=== PATIENT | male | born 1960 | race Caucasian/White ===

== ENCOUNTER 2023-09-16 21:14 | Inpatient (IN) | payer BC, SELFPAY ==
[2023-09-16 16:09] VITALS: BP 157/102
[2023-09-16 16:30] LABS: % Basophils 0.9 % (0-2); % Immature Granulocytes 0.2 % (0-0.5); % Lymphocytes 26.5 % (20.5-51.1); % Monocytes 8.7 % (1.7-9.3); % Neutrophils 62.7 % (42.2-75.2); Absolute Basophils 0.1 10^3/uL (0-0.2); Absolute Eosinophils 0.1 10^3/uL (0-0.7); Absolute Lymphocytes 2.1 10^3/uL (1.2-3.4); Absolute Monocytes 0.7 10^3/uL (0.1-0.6); Absolute Neutrophils 5.1 10^3/uL (1.4-6.5); Hemoglobin 15.6 g/dL (13.0-18.0); Mean Corp Hgb Conc. 35.5 g/dL (33.0-37.0); Mean Corpuscular Hgb 31.3 pg (27.0-31.0); Mean Corpuscular Volume 88.2 fL (80.0-94.0); Mean Platelet Volume 9.3 fL (7.4-10.4); Nucleated Red Blood Cells % 0 % (-); Platelet Count 448 10^3/uL (130-400); Red Blood Cell Count 4.99 10^6/uL (4.70-6.10); Red Cell Dist. Width 11.9 % (11.5-14.5); White Blood Cell Count 8.1 10^3/uL (4.8-10.8)
[2023-09-16 16:44] LABS: ALT (SGPT) 69 U/L (0-50); AST (SGOT) 44 U/L (17-59); Albumin 4.3 g/dl (3.5-5.0); Alkaline Phosphatase 94 U/L (38-126); Blood Urea Nitrogen 17 mg/dl (9-20); Calcium 10.2 mg/dl (8.4-10.2); Carbon Dioxide 21 mmol/L (22-30); Chloride 108 mmol/L (98-107); Glucose 109 mg/dl (70-99); Potassium 4.3 mmol/L (3.5-5.1); Sodium 139 mmol/L (135-145); Total Bilirubin 0.6 mg/dl (0.2-1.3); eGFR > 60.00
[2023-09-16 17:54] VITALS: BP 139/82
[2023-09-16 18:00] VITALS: BP 147/91
--- NOTE | 2023-09-16 18:24 | ED.SKININJ ---
HPI-Injury
General
Chief Complaint: Skin Problem
Source: patient
Exam Limitations: none
Time Seen by Provider: 09/16/23 17:39
Nursing documentation reviewed up to this point in time: agreed with
History of Present Illness-Injury
Initial Injury comments:
63 yo male w no significant past medical history presents with an infection of the lateral aspect of his right ankle. He states he felt discomfort in the area 11 days ago, 9 days ago the ankle felt 'tight' after doing a lot of walking the night
before. He saw his PCP 8 days ago and started on Keflex 1000 mg twice daily and naproxen. 5 days ago the area became more painful and his PCP ordered an MRI which he had yesterday at [facility]. 2 days ago he discontinued the Keflex and
started him on Doxycycline he has had 5 doses.The area continues to get more sore, red and swollen.
Pt denies fever/chills. Feels well otherwise.
His PCP called him today and 'mentioned osteomyelitis' but pt states he doesn't know if he has that.
Past History
Past History
ED Past Medical History: None
ED Past Surgical History: Orthopedic (right foot crush injury age 11, multiple surgeries)
Social History
Tobacco: Smoker
Alcohol: None
Personal:
Living: alone
Review of Systems
Review of Systems
Allergies reviewed?: Yes
All Other Systems: ROS reviewed and negative except as documented in HPI and ROS
Constitutional: Denies fever or chills
ABD/GI: Denies nausea
Musculoskeletal: Reports other (deformed right foot from previous surgery,)
Skin: Reports other ( redness, swelling, pain outer right ankle)
Phy Exam
Physical Exam
Physical Exam:
GENERAL: No acute distress. A&Ox3.
CONSTITUTIONAL: Afebrile.
EYES: clear, conjunctivae normal
ENMT: moist mucus membranes, Pharynx nl
RESPIRATORY: Regular respirations, nonlabored, lungs clear.
CARDIOVASCULAR: Regular rate and rhythm, no murmurs, no rubs.
GI: Soft, nontender, normal BS
MUSCULOSKELETAL: Moves with ease. Well perfused.
SKIN: Warm, dry, pink. Fluctuant area with surrounding erythema, pus filled lateral aspect of right ankle over lateral malleolus. No lymphangitis. Distal n/v intact.
PSYCH: Normal mood and affect. Well kept, interactive and appropriate
NEUROLOGIC: Awake, alert and oriented. No focal neurological deficits
Course
Orders/Labs/Results
Orders:
Orders
09/16/23 16:20
Complete Blood Count/With Diff Urgent
Comprehensive Metabolic Panel Urgent
09/16/23 18:35
Vancomycin 1 Gram/200 ml [Vancocin] 1 gram in 200 ml IV NOW
09/16/23 20:40
Admit/Transfer Patient As Directed
Co-Sign Provider:
Level of Care: Inpatient admission
Assign to:: Medical/Surgical
Physician / Group: Allison
Diagnosis: Right Ankle Cellulitis
Reason for Hospitalization: Right Ankle Cellulitis failing 2 outpatient courses
Expected length of stay greater than two midnights?: Yes
ELOS- Estimated Length of Stay in days: 2
I certify the patient meets the requirements for IP care: Yes
PRN Pain Medication Management As Directed
May give lesser potent ordered pain med per pt: Yes
preference::
Protocol:: Medication orders for pain may be administered in a
manner that supports deferring to patient preference
when the pt is:
- Requesting an ordered lesser potent pain medication.
Least to most potent pain medications are defined
as: acetaminophen < NSAID < tramadol < opioids
(morphine, oxycodone, hydromorphone).
- Requesting a lesser dose of the same medication IF
ORDERED.
- Requesting a less intrusive route of administration
if both routes are prescribed by the provider (PO <
IV).
09/16/23 20:42
Code Status As Directed
Resuscitation Status: Full Code
Abnormal Lab Results
09/16/23
16:20
MCH 31.3 H pg
(27.0-31.0)
Plt Count 448 H 10^3/uL
(130-400)
Absolute Monos (auto) 0.7 H 10^3/uL
(0.1-0.6)
Chloride 108 H mmol/L
(98-107)
Carbon Dioxide 21 L mmol/L
(22-30)
Glucose 109 H mg/dl
(70-99)
ALT 69 H U/L
(0-50)
09/16/23 16:20
09/16/23 16:20
Vital Signs
Initial and Last Documented VS:
Initial Vital Signs
Temp Pulse Resp BP Pulse Ox
98.3 F 105 18 157/102 97
09/16/23 16:09 09/16/23 16:09 09/16/23 16:09 09/16/23 16:09 09/16/23 16:09
Last Documented Vital Signs
Temp Pulse Resp BP Pulse Ox
98.3 F 105 18 147/91 97
09/16/23 16:09 09/16/23 16:09 09/16/23 16:09 09/16/23 19:49 09/16/23 19:45
MDM/Problems Addressed
Differential Diagnosis Includes:
abscess, cellulitis, osteomyelitis.
MDM/Problems Addressed:
63 yo male w no significant past medical history presents with an infection of the lateral aspect of his right ankle. He states he felt discomfort in the area 11 days ago, 9 days ago the ankle felt 'tight' after doing a lot of walking the night
before. He saw his PCP 8 days ago and started on Keflex 1000 mg twice daily and naproxen. 5 days ago the area became more painful and his PCP ordered an MRI which he had yesterday at [facility]. 2 days ago he discontinued the Keflex and
started him on Doxycycline he has had 5 doses.The area continues to get more sore, red and swollen.
Pt denies fever/chills. Feels well otherwise.
His PCP called him today and 'mentioned osteomyelitis' but pt states he doesn't know if he has that.
Afebrile, NAD
7:30 PM
CBC, CMP with no clinically significant abnormality
Requested copy of MRI report from [facility], awaiting fax
Hospitalist notified of admission
*Critical Care Note
Total Time (30-74mins, 75-104mins- exclusive of procedures): Not Applicable
ED Attending Note
-
Portions of this chart may have been created with voice recognition software.� Occasional wrong word or��sound alike� substitutions may have occurred due to the inherent limitations of voice recognition software.
Discharge Plan
Departure
Patient Disposition: Admit
Date of Disposition: 09/16/23
Time of Disposition: 19:26
Admit to: Med/Surg
Presentation/result/management discussed w/ accepting MD/DO: Hospitalist
Condition: Fair
Discharge Problem:
Cellulitis of right ankle
Prescriptions:
No Action
cephalexin 500 MG capsule
500 mg PO BID Qty: 20 0RF
Patient Comments:
09/16/23: take until bottle runs out
doxycycline hyclate 100 mg Capsule
100 mg PO BID
Patient Comments:
09/16/23: take until bottle runs out
cyanocobalamin (vitamin B-12) 1,000 mcg Tablet
1,000 mcg PO DAILY
Theragen Tablet
1 tab PO DAILY
ascorbic acid (vitamin C) [Vitamin C] 500 mg Tablet
500 mg PO DAILY
carboxymethylcellulose sodium [Refresh Tears] 0.5 % Drops
1 drp BOTH EYES QIDPRN PRN (Reason: dry eyes)
Bilberry Extract 40-25-10-10 mg Capsule
1 cap PO DAILY
naproxen 500 mg Tablet
500 mg PO BID
Patient Comments:
09/16/23: Take with antibiotics
cholecalciferol (vitamin D3) [Vitamin D3] 25 mcg (1,000 unit) Tablet
25 mcg PO DAILY
Interventions
Interventions:
*Risk Screen - Suicide Last Done: 09/16/23 16:09
*General Assessment Last Done: 09/16/23 16:09
*Neglect/Abuse Screening Last Done: 09/16/23 16:09
ED-Skin Assessment Last Done: 09/16/23 18:14
Discharge Date and Time
Print Language: CITIZEN OF [place]
[2023-09-16] MEDS: VANCOCIN 200 IV ×2 (18:58→23:14)
[2023-09-16 19:49] VITALS: BP 147/91
--- NOTE | 2023-09-16 20:46 | HPS.HSE ---
Family Physician
-
Family Physician: Bill Ramirez
Chief Complaint
-
Right Ankle Wound/Infection failing outpatient abx
History of Present Illness
63yo M with H Tobacco Abuse and Right Ankle Crush Injury as a 11yr old child who presents to ER with complaint of right ankle wound/cellulitis. He states 9 days ago he noticed 'tightness' without redness around his right ankle. Erythema developped
and Pain progressed contributing to difficulty mobilizing. 09/07 he was seen by PCP and underwent XR which was negative and was started on keflex 1000mg BID for 7 days without improvement. He was then seen 2 days ago and changed to doxy 100mg BID
without improvement. Pt also had an MRI performed outpatient at [facility] with PCP concerned for osteomyelitis (results not yet available). Denies fever. Denies dizziness/LH, CP, palps, wheezing, cough, abd pain, n/v/d/c, dysuria, calf or leg
pain.
ER course: Pt presents with V.S.S. WBC 8.1K, Hgb 15.6K. Co2 21. BUN/Cr 17/0.8. AST/ALT 44/69. S/P IV vancomycin in ER. Records of recent MRI still pending.
Medical History
Past Medical History
Past Medical History: Reports Other (Right Foot Crush Injury)
Past Surgical History: Reports Other (Surgical pinning of b/l thumbs, B/L Humeral Fractures s/p repair, Detached Retina, Skin Grafting and Surgical repair of right foot crush injury ( no recent surgeries))
Social History
Tobacco: Smoker (Smokes 1/3 PPD. Previous 2+ PPD smoker for total 40 yrs)
Alcohol: Former (Sobriety 20+ yrs)
Drug: None
Personal:
Family History
Family History: Other (Mother with DM, Father with DM)
Allergies / Home Medications
Allergies reflects when Allergies were last updated in [facility].
Home Medications with original date entered in [facility]
Allergy/Medication List:
Allergies
Allergy/AdvReac Type Severity Reaction Status Date / Time
No Known Allergies Allergy Verified 03/06/21 15:31
Home Medications
cephalexin 500 mg capsule 500 mg PO BID Skin issues #20 caps 03/06/21
ascorbic acid (vitamin C) 500 mg tablet (Vitamin C) 500 mg PO DAILY 09/16/23
mpdxjzmd-ypeue-slrhrdj-quercet 40 mg-25 mg-10 mg-10 mg capsule (Bilberry Extract) 1 cap PO DAILY 09/16/23
carboxymethylcellulose sodium 0.5 % eye drops (Refresh Tears) 1 drp BOTH EYES QIDPRN PRN dry eyes 09/16/23
cholecalciferol (vitamin D3) 25 mcg (1,000 unit) tablet (Vitamin D3) 25 mcg PO DAILY 09/16/23
cyanocobalamin (vitamin B-12) 1,000 mcg tablet 1,000 mcg PO DAILY 09/16/23
doxycycline hyclate 100 mg capsule 100 mg PO BID 09/16/23
naproxen 500 mg tablet 500 mg PO BID 09/16/23
therapeutic multivitamin 1 tab PO DAILY 09/16/23
Review of Systems
-
A 12 point ROS was completed and negative except as noted: Yes
Physical Exam
Vital Signs
Vital Signs
Temp Pulse Resp BP Pulse Ox
98.3 F 105 18 147/91 97
09/16/23 16:09 09/16/23 16:09 09/16/23 16:09 09/16/23 19:49 09/16/23 19:45
Physical Exam
General: Well Developed, Well Nourished and No Apparent Distress
HEENT: NormoCephalic, Moist mucous membranes and Atraumatic
Respiratory: Clear
Cardiac: S1/S2 and Regular Rhythm; No Murmur or Rub
GI: Soft, Non Tender, Non Distended and Normal Bowel Sounds; No Organomegaly
Rectal: Deferred by Provider
Musculoskeletal: No Clubbing, No Cyanosis and Other (Right ankle erythema with periphery of blanching. +TTP. Limitation with ankle flexion/extension; inversion>eversion. )
Skin: Warm and Dry
Neuro: Awake, Alert, Oriented, AO x 3 and Nonfocal/grossly intact
Hematologic/Lymphatic: No Lymphadenopathy
Psych: Calm
Laboratory Results
-
09/16/23 16:20
09/16/23 16:20
Laboratory Results
Total Bilirubin 0.6 mg/dl (0.2-1.3) 09/16/23 16:20
AST 44 U/L (17-59) 09/16/23 16:20
ALT 69 U/L (0-50) H 09/16/23 16:20
Alkaline Phosphatase 94 U/L (38-126) 09/16/23 16:20
Impression/Plan
-
Right Ankle Cellulitis r/o Abscess
Failure of outpatient therapy
- AFebrile, no leukocytosis
- Failed 7 day course of keflex and recently started on doxycycline 100mg BID 2 days ago
- Continue IV vancomycin per pharm protocol
- Continue tylenol and prn toradol for analgesia.
- XR reported recently negative. Outpatient MRI awaiting fax - request to obtain records placed
- Case D/W Podiatry who will evaluate in AM for drainable collection
Tobacco Abuse - Patient was counseled on cessation. Declines nicotine patch at this time.
Transaminitis, Mild - Remote ETOH abuse history reported. Likely chronic. Will trend LFTs/Coags for AM
Diet: Regular
DVT ppx: Lovenox
Code Status: Full
[2023-09-16 21:46] VITALS: BP 162/91
[2023-09-16 21:47] VITALS: BMI 33.4
[2023-09-16 23:05] VITALS: BP 137/76
[2023-09-17 07:45] VITALS: BP 140/86
[2023-09-17] MEDS: VITAMIN B-12 1000 MCG PO (08:07)
[2023-09-17] MEDS: THERAGRAN 1 TABLET PO (08:07)
[2023-09-17] MEDS: VITAMIN D3 (cholecalciferol) 25 MCG PO (08:07)
[2023-09-17] MEDS: VITAMIN C 500 MG PO (08:07)
[2023-09-17 09:05] LABS: PT 15.1 Sec (11.4-14.6)
[2023-09-17 09:06] LABS: APTT 32.5 Sec (23.4-35.0)
[2023-09-17 09:30] LABS: ALT (SGPT) 61 U/L (0-50); AST (SGOT) 43 U/L (17-59); Albumin 3.9 g/dl (3.5-5.0); Alkaline Phosphatase 78 U/L (38-126); Blood Urea Nitrogen 16 mg/dl (9-20); Calcium 9.7 mg/dl (8.4-10.2); Carbon Dioxide 22 mmol/L (22-30); Chloride 108 mmol/L (98-107); Direct Bilirubin 0.3 mg/dl (0.0-0.4); Estimated Creatinine Clearance > 125 ml/min; Glucose 105 mg/dl (70-99); Potassium 4.9 mmol/L (3.5-5.1); Sodium 136 mmol/L (135-145); Total Bilirubin 0.7 mg/dl (0.2-1.3); Total Protein 7.1 g/dl (6.3-8.2); eGFR > 60.00
[2023-09-17 09:41] LABS: % Basophils 0.9 % (0-2); % Eosinophils 1.8 % (0-6); % Immature Granulocytes 0.3 % (0-0.5); % Lymphocytes 28.2 % (20.5-51.1); % Monocytes 10.2 % (1.7-9.3); % Neutrophils 58.6 % (42.2-75.2); Absolute Basophils 0.1 10^3/uL (0-0.2); Absolute Eosinophils 0.1 10^3/uL (0-0.7); Absolute Lymphocytes 2.2 10^3/uL (1.2-3.4); Absolute Monocytes 0.8 10^3/uL (0.1-0.6); Absolute Neutrophils 4.5 10^3/uL (1.4-6.5); Hemoglobin 14.1 g/dL (13.0-18.0); Mean Corp Hgb Conc. 34.4 g/dL (33.0-37.0); Mean Corpuscular Hgb 31.3 pg (27.0-31.0); Mean Corpuscular Volume 90.9 fL (80.0-94.0); Mean Platelet Volume 10.2 fL (7.4-10.4); Nucleated Red Blood Cells % 0 % (-); Platelet Count 444 10^3/uL (130-400); Red Blood Cell Count 4.51 10^6/uL (4.70-6.10); Red Cell Dist. Width 12.2 % (11.5-14.5); White Blood Cell Count 7.7 10^3/uL (4.8-10.8)
--- NOTE | 2023-09-17 10:04 | PHA.VAN.IN ---
AUC Dosing Plan
- Dosing Variables
Dosing Weight (kg): 118
Dosing CrCl (ml/min): 100
Vd coefficient (L/kg): 0.6
- Empiric Dosing
Initial / Loading Dose: Vancomycin 2000mg in split load 09/16/23 at 18:58, 23:14
Maintenance Regimen: Vancomycin 1500mg IV Q12hr start today at 18:00
Estimated AUC (mcg*h/mL): 517
Estimated Peak (mcg*h/mL): 33
Estimated Trough (mcg/ml): 13
Estimated Half Life (H): 8
- Monitoring
No levels ordered at this time: Will order levels according to vancomycin dosing protocol
Pharmacokinetics Vancomycin I
- -
Patient Age: 63
Patient Sex: Male
Vancomycin Day #: 1
Indication: Bone And Joint
Requesting Provider: Dr. Brianda Cooper
Pertinent Antimicrobial Allergies:
No antibiotic allergies
Height / Weight:
Height 6 ft 2 in
Actual Weight 118.025 kg
IBW in k.2
Adjusted BW in k.5
Pertinent Past Medical History: BMI~33, R Ankle Crush Injury as 11yr old with surgeries at that time
- Vital Signs / Lab Results
Temp Pulse Resp BP Pulse Ox
98.4 F 67 16 140/86 93
09/17/23 07:45 09/17/23 07:45 09/17/23 07:45 09/17/23 07:45 09/17/23 09:17
Lab Results - Hematology
09/16/23 09/17/23
16:20 06:59
WBC 8.1 7.7
Lab Results - Chemistry
09/16/23 09/17/23
16:20 06:59
BUN 17 16
Creatinine 0.8 0.8
Estimated Creat Clear > 125
Albumin 4.3 3.9
[2023-09-17 10:43] LABS: Erythrocyte Sed Rate 70 mm/hour (0-20)
--- NOTE | 2023-09-17 10:55 | CM ---
CM following re: discharge planning.
Reviewed pt's chart, met with pt.
Pt is a 63 year old male, admitted with primary dx of R ankle cellulitis.
Pt reports he lives with spouse in a 2SH townhouse, has 2 supportive children. Pt described himself as independent in all areas [employer], drives, works.
PCP: Bill Tomlinson
Pharmacy: [facility]
D/C plan: home with anticipated no needs. Family to transport at discharge.
CM will follow with discharge plan updates as hospitalization progresses
--- NOTE | 2023-09-17 12:48 | W.PN.HOSP.TC ---
Today's Communication/Plan
-
Cont Abx, F/u MRSA
Podiatry Recs
MRI read
Assessment / Plan
Assessment / Plan
Physical Exam
General: Well Developed, Well Nourished and No Apparent Distress
HEENT: NormoCephalic, Moist mucous membranes and Atraumatic
Respiratory: Clear
Cardiac: S1/S2 and Regular Rhythm; No Murmur or Rub
GI: Soft, Non Tender, Non Distended and Normal Bowel Sounds; No Organomegaly
Rectal: Deferred by Provider
Musculoskeletal: No Clubbing, No Cyanosis and Other (Right ankle erythema with periphery of blanching. +TTP. Limitation with ankle flexion/extension; inversion>eversion. )
Skin: Warm and Dry
Neuro: Awake, Alert, Oriented, AO x 3 and Nonfocal/grossly intact
Hematologic/Lymphatic: No Lymphadenopathy
Psych: Calm
Right Ankle Cellulitis r/o Abscess
Failure of outpatient therapy
- AFebrile, no leukocytosis
- Failed 7 day course of keflex and recently started on doxycycline 100mg BID 2 days ago
- Continue IV vancomycin per pharm protocol, switch to cefazolin if MRSA negative
- Continue tylenol and prn toradol for analgesia.
- XR reported recently negative. Outpatient MRI awaiting fax - request to obtain records placed
- Case D/W Podiatry - awaiting recs for drainable collection
Tobacco Abuse - Patient was counseled on cessation. Declines nicotine patch at this time.
Transaminitis, Mild - Remote ETOH abuse history reported. Likely chronic. Will trend LFTs/Coags for AM
Diet: Regular
DVT ppx: Lovenox
Code Status: Full
Anticipated Discharge: > 48 hours
Subjective/Interval History
-
Date of Service: September 17, 2023
no acute events
Objective Data
-
Labs:
Laboratory Results
09/17/23
06:59
WBC 7.7
Hgb 14.1
Hct 41.0
Plt Count 444 H
PT 15.1 H
INR 1.20
APTT 32.5
Sodium 136
Potassium 4.9
Chloride 108 H
Carbon Dioxide 22
BUN 16
Creatinine 0.8
Glucose 105 H
Calcium 9.7
Total Bilirubin 0.7
AST 43
ALT 61 H
Alkaline Phosphatase 78
Vital Signs:
Vital Signs
Temp Pulse Resp BP Pulse Ox
98.4 F 67 16 140/86 93
09/17/23 07:45 09/17/23 07:45 09/17/23 07:45 09/17/23 07:45 09/17/23 09:17
I&O
09/16/23 09/17/23 09/18/23
06:59 06:59 06:59
Intake Total 680 / 680
Balance 680 / 680
Review of Systems
-
History Source: Patient
All other systems: Not reviewed unless documented
Data Reviewed
-
Labs: Labs Reviewed by me
[2023-09-17 15:40] VITALS: BP 125/73
[2023-09-17] MEDS: VANCOCIN 300 MG IV (17:33)
[2023-09-17] MEDS: VANCOCIN 300 ML IV (17:33)
[2023-09-17] MEDS: LOVENOX 40 MG SC (17:33)
--- NOTE | 2023-09-17 19:48 | W.CS.POD ---
Consult Summary - Podiatry
-
This is a 63yo male who was admitted yesterday for cellulitis of the right lateral ankle. The patient relates developing 'tightness' in his ankle approximately 9 days ago with subsequent redness, swelling and pain developing over the next few days.
He visited his PCP on 09/08/23 and XRAYS were negative for fracture/infection. He was given RX for Keflex for 6-7 days with on improvement. A return to his PCP resulted to a change in ABx to Doxycycline and an MRI was done 2-3 days ago. The patient
relates suffering a crush injury to this ankle as a 11 year old, with chronic arthritis and stiffness. He denies any fever, chills or sweats.
Afebrile, VSS.
No leukocytosis.
NVSI bilateral LE's
There is mild to moderate edema and erythema of the lateral right ankle centered over a concentrated raised area of soft tissue swelling/mass, approximately 3cm in diameter round. Some peeling of the skin along the periphery of the swelling.
The area is warm to touch. No ascending cellulitis, lymphangitis noted.
The left ankle and hindfoot girth, and limited active/passive ROM noted due to old trauma. No crepitus noted.
MRI of the right ankle taken at [facility] on 09/15/23 reports (no images available): 'There is soft tissue swelling along the lateral malleolus. No fluid collections seen. There is heterogeneous T1 marrow signal within the lateral malleolus with
corresponding STIR signal abnormality. Given there is no reported history of trauma and concern for infection, osteomyelitis cannot be excluded. Small tibiotalar joint effusion.
Their is tendinosis/partial tearing of the peroneal longus and brevis tendons with associated tenosynovitis.'
Assessment/Plan:
Cellulitis with suspicion of abscess, lateral right ankle.
H/O Crush injury with significant chronic, post-traumatic arthritis, right ankle.
I believe that there is likely an abscess overlying the lateral malleolus.
Given the extent of left ankle/lower leg involvement, the necessary care for this patient is out of the scope of my podiatric surgical privileges at . I spoke with the director of our department on the matter and he agreed. The patient was made
aware.
The hospitalist was made aware, and ortho was consulted.
I spoke with Dr. Uribe (Ortho transportation planner) on the matter, and she and I agreed that a new MRI should be ordered to better determine the extent and nature of the apparent infectious/inflammatory process and subsequently Dr. Chew will care for this
patient.
Please reconsult as necessary.
[2023-09-17 23:00] VITALS: BP 120/71
[2023-09-18] MEDS: VANCOCIN 300 MG IV ×2 (05:58→17:25)
[2023-09-18] MEDS: VANCOCIN 300 ML IV ×2 (05:58→17:25)
[2023-09-18] MEDS: TYLENOL 650 MG PO (06:06)
[2023-09-18] MEDS: VITAMIN B-12 1000 MCG PO (07:24)
[2023-09-18] MEDS: VITAMIN D3 (cholecalciferol) 25 MCG PO (07:24)
[2023-09-18] MEDS: THERAGRAN 1 TABLET PO (07:24)
[2023-09-18] MEDS: VITAMIN C 500 MG PO (07:24)
[2023-09-18 07:30] VITALS: BP 117/68
--- NOTE | 2023-09-18 11:56 | W.PN.HOSP.TC ---
Today's Communication/Plan
-
cont vanc
mri pending
Assessment / Plan
Assessment / Plan
Physical Exam
General: Well Developed, Well Nourished and No Apparent Distress
HEENT: NormoCephalic, Moist mucous membranes and Atraumatic
Respiratory: Clear
Cardiac: S1/S2 and Regular Rhythm; No Murmur or Rub
GI: Soft, Non Tender, Non Distended and Normal Bowel Sounds; No Organomegaly
Rectal: Deferred by Provider
Musculoskeletal: No Clubbing, No Cyanosis and Other (Right ankle erythema with periphery of blanching. +TTP. Limitation with ankle flexion/extension; inversion>eversion. )
Skin: Warm and Dry
Neuro: Awake, Alert, Oriented, AO x 3 and Nonfocal/grossly intact
Hematologic/Lymphatic: No Lymphadenopathy
Psych: Calm
Right Ankle Cellulitis r/o Abscess
Failure of outpatient therapy
- AFebrile, no leukocytosis
- Failed 7 day course of keflex and recently started on doxycycline 100mg BID 2 days ago
- Continue IV vancomycin per pharm protocol; if no drainable collection - can switch to cefazolin
-Podiatry/Ortho requesting repeat MRI - possibly needs I&D; if at ankle site - needs ortho on board
- Continue tylenol and prn toradol for analgesia.
-MRI from outpatient records reviewed by podiatry
Tobacco Abuse - Patient was counseled on cessation. Declines nicotine patch at this time.
Transaminitis, Mild - Remote ETOH abuse history reported. Likely chronic. Will trend LFTs/Coags for AM
Diet: Regular
DVT ppx: Lovenox
Code Status: Full
Anticipated Discharge: Within 24 hours
Subjective/Interval History
-
Date of Service: September 18, 2023
no acute events overnight
Objective Data
-
Labs:
Laboratory Results
09/18/23
06:00
WBC Pending
Hgb Pending
Hct Pending
Plt Count Pending
Sodium Pending
Potassium Pending
Chloride Pending
Carbon Dioxide Pending
BUN Pending
Creatinine Pending
Glucose Pending
Calcium Pending
Total Bilirubin Pending
AST Pending
ALT Pending
Alkaline Phosphatase Pending
Vital Signs:
Vital Signs
Temp Pulse Resp BP Pulse Ox
97.7 F 57 18 117/68 94
09/18/23 07:30 09/18/23 07:30 09/18/23 07:30 09/18/23 07:30 09/18/23 07:52
I&O
09/17/23 09/18/23 09/19/23
06:59 06:59 06:59
Intake Total 680 / 680 960 / 960
Balance 680 / 680 960 / 960
Review of Systems
-
History Source: Patient
All other systems: Not reviewed unless documented
Data Reviewed
-
Labs: Labs Reviewed by me
[2023-09-18 13:36] LABS: Hematocrit 43.3 % (39.0-52.0); Hemoglobin 15.3 g/dL (13.0-18.0); Mean Corp Hgb Conc. 35.3 g/dL (33.0-37.0); Mean Corpuscular Hgb 31.2 pg (27.0-31.0); Mean Corpuscular Volume 88.2 fL (80.0-94.0); Mean Platelet Volume 9.1 fL (7.4-10.4); Platelet Count 531 10^3/uL (130-400); Red Blood Cell Count 4.91 10^6/uL (4.70-6.10); Red Cell Dist. Width 12.1 % (11.5-14.5); White Blood Cell Count 7.7 10^3/uL (4.8-10.8)
[2023-09-18 13:41] LABS: ALT (SGPT) 63 U/L (0-50); AST (SGOT) 40 U/L (17-59); Albumin 4.3 g/dl (3.5-5.0); Alkaline Phosphatase 85 U/L (38-126); Blood Urea Nitrogen 18 mg/dl (9-20); Calcium 10.3 mg/dl (8.4-10.2); Carbon Dioxide 26 mmol/L (22-30); Chloride 106 mmol/L (98-107); Estimated Creatinine Clearance > 125 ml/min; Glucose 91 mg/dl (70-99); Potassium 4.5 mmol/L (3.5-5.1); Sodium 138 mmol/L (135-145); Total Bilirubin 0.7 mg/dl (0.2-1.3); eGFR > 60.00
--- NOTE | 2023-09-18 14:49 | PHA.VAN.FU ---
Vancomycin Assessment / Plan
- Assessment
Renal Function: Stable (0.8>0.8)
WBC's are: Stable (7.7>7.7)
In the past 24 hrs, patient has been: Afebrile
- Dosing Plan
Continue: Vancomycin 1500mg IV Q12hr
- Monitoring Plan
No level(s) ordered at this time: Will order levels according to vancomycin dosing protocol
- Follow Up
Pharmacy will continue to follow.
Vancomycin Follow UP
- -
Patient Age: 63
Patient Sex: Male
Vancomycin Day #: 2
Indication: Bone And Joint
Requesting Provider: Dr. Brianda Cooper
Pertinent Antimicrobial Allergies:
No antibiotic allergies
Height / Weight:
Height 6 ft 2 in
Actual Weight 118.025 kg
IBW in k.2
Adjusted BW in k.5
Pertinent Past Medical History: BMI~33, R Ankle Crush Injury as 11yr old with surgeries at that time
- Vital Signs / Lab Results
Temp Pulse Resp BP Pulse Ox
97.7 F 57 18 117/68 94
09/18/23 07:30 09/18/23 07:30 09/18/23 07:30 09/18/23 07:30 09/18/23 07:52
Lab Results - Hematology
09/16/23 09/17/23 09/18/23
16:20 06:59 13:21
WBC 8.1 7.7 7.7
Lab Results - Chemistry
09/16/23 09/17/23 09/18/23
16:20 06:59 13:21
BUN 17 16 18
Creatinine 0.8 0.8 0.8
Estimated Creat Clear > 125 > 125
Albumin 4.3 3.9 4.3
Microbiology Results
09/16/23 00:00 MRSA Screen - Final
Nose No Methicillin Resistant Staphylococcus aureus isolated.
[2023-09-18 16:00] VITALS: BP 134/74
[2023-09-18] MEDS: LOVENOX SC (17:25)
[2023-09-18 23:00] VITALS: BP 100/64
[2023-09-19] MEDS: VANCOCIN 300 MG IV ×2 (06:36→18:04)
[2023-09-19] MEDS: VANCOCIN 300 ML IV ×2 (06:36→18:04)
[2023-09-19 07:30] VITALS: BP 112/65
--- NOTE | 2023-09-19 08:14 | PHA.VAN.FU ---
Vancomycin Assessment / Plan
- Assessment
Renal Function: Stable
WBC's are: WNL
In the past 24 hrs, patient has been: Afebrile
- Dosing Plan
Continue: Vanc 1500mg Q12H
- Monitoring Plan
Peak Level: 8 21:00
Trough Level: 09/19 05:30
Monitoring Comments: levels to be drawn after 5th maintenance dose
- Follow Up
Pharmacy will continue to follow.
Vancomycin Follow UP
- -
Patient Age: 63
Patient Sex: Male
Vancomycin Day #: 3
Indication: Bone And Joint
Requesting Provider: Dr. Brianda Cooper / Amanda
Pertinent Antimicrobial Allergies:
No antibiotic allergies
Height / Weight:
Height 6 ft 2 in
Actual Weight 118.025 kg
IBW in k.2
Adjusted BW in k.5
Pertinent Past Medical History: BMI ~33
- Vital Signs / Lab Results
Temp Pulse Resp BP Pulse Ox
97.7 F 59 19 112/65 99
09/19/23 07:30 09/19/23 07:30 09/19/23 07:30 09/19/23 07:30 09/19/23 07:30
Lab Results - Hematology
09/16/23 09/17/23 09/18/23
16:20 06:59 13:21
WBC 8.1 7.7 7.7
Lab Results - Chemistry
09/16/23 09/17/23 09/18/23
16:20 06:59 13:21
BUN 17 16 18
Creatinine 0.8 0.8 0.8
Estimated Creat Clear > 125 > 125
Albumin 4.3 3.9 4.3
Microbiology Results
09/16/23 00:00 MRSA Screen - Final
Nose No Methicillin Resistant Staphylococcus aureus isolated.
[2023-09-19] MEDS: VITAMIN D3 (cholecalciferol) 25 MCG PO (09:19)
[2023-09-19] MEDS: VITAMIN B-12 1000 MCG PO (09:19)
[2023-09-19] MEDS: VITAMIN C 500 MG PO (09:19)
[2023-09-19] MEDS: THERAGRAN 1 TABLET PO (09:19)
[2023-09-19 10:03] LABS: Hematocrit 43.9 % (39.0-52.0); Hemoglobin 15.3 g/dL (13.0-18.0); Mean Corp Hgb Conc. 34.9 g/dL (33.0-37.0); Mean Corpuscular Hgb 31.5 pg (27.0-31.0); Mean Corpuscular Volume 90.3 fL (80.0-94.0); Mean Platelet Volume 9.5 fL (7.4-10.4); Platelet Count 478 10^3/uL (130-400); Red Blood Cell Count 4.86 10^6/uL (4.70-6.10); White Blood Cell Count 7.5 10^3/uL (4.8-10.8)
[2023-09-19 11:28] LABS: ALT (SGPT) 53 U/L (0-50); AST (SGOT) 36 U/L (17-59); Alkaline Phosphatase 92 U/L (38-126); Blood Urea Nitrogen 17 mg/dl (9-20); Calcium 9.8 mg/dl (8.4-10.2); Carbon Dioxide 23 mmol/L (22-30); Chloride 106 mmol/L (98-107); Estimated Creatinine Clearance > 125 ml/min; Glucose 112 mg/dl (70-99); Potassium 4.8 mmol/L (3.5-5.1); Sodium 138 mmol/L (135-145); Total Bilirubin 0.6 mg/dl (0.2-1.3); Total Protein 7.6 g/dl (6.3-8.2); eGFR > 60.00
--- NOTE | 2023-09-19 12:34 | W.PN.HOSP.TC ---
Today's Communication/Plan
-
Check GGT
ID consult
Podiatry consult
PT/OT
Assessment / Plan
Assessment / Plan
Physical Exam
General: Well Developed, Well Nourished and No Apparent Distress
HEENT: NormoCephalic, Moist mucous membranes and Atraumatic
Respiratory: Clear
Cardiac: S1/S2 and Regular Rhythm; No Murmur or Rub
GI: Soft, Non Tender, Non Distended and Normal Bowel Sounds; No Organomegaly
Rectal: Deferred by Provider
Musculoskeletal: No Clubbing, No Cyanosis and Other (Right ankle erythema with periphery of blanching. +TTP. Limitation with ankle flexion/extension; inversion>eversion. )
Skin: Warm and Dry
Neuro: Awake, Alert, Oriented, AO x 3 and Nonfocal/grossly intact
Hematologic/Lymphatic: No Lymphadenopathy
Psych: Calm
Right Ankle abscess/acute osteomyelitis -MRI noted. 1.6 x 0.6 x 1.4 cm abscess along the lateral malleolus of the right ankle. Osteomyelitis involving the lateral malleolus which appears to extend into the lateral aspect of the distal fibular
shaft. Tenosynovitis and myositis noted. Has had significant pain with ambulation for the past 2 weeks, has been using a cane. Baseline is independent.
Failed outpatient therapy with Keflex for 1 week.
Consult podiatry, infectious disease. Currently on empiric IV vancomycin.
Tobacco dependence - Patient was counseled on cessation. Declines nicotine patch at this time.
Impaired fasting glucose -hemoglobin A1c 6.0%. Weight loss encouraged.
Transaminitis, Mild - Remote ETOH abuse history reported. Isolated mild ALT elevation. Check GGT.
Venous stasis dermatitis - hyperpigmentation of bilateral lower extremities noted. Recommend weight loss.
Obesity due to excess calories
Full code
PT/OT
Anticipated Discharge: > 48 hours
Subjective/Interval History
-
Date of Service: September 19, 2023
Patient seen and examined. Complaining of right ankle pain with weightbearing and ambulation.
Objective Data
-
Labs:
Laboratory Results
09/19/23
09:20
WBC 7.5
Hgb 15.3
Hct 43.9
Plt Count 478 H
Sodium 138
Potassium 4.8
Chloride 106
Carbon Dioxide 23
BUN 17
Creatinine 0.8
Glucose 112 H
Calcium 9.8
Total Bilirubin 0.6
AST 36
ALT 53 H
Alkaline Phosphatase 92
Vital Signs:
Vital Signs
Temp Pulse Resp BP Pulse Ox
97.7 F 59 19 112/65 99
09/19/23 07:30 09/19/23 07:30 09/19/23 07:30 09/19/23 07:30 09/19/23 07:30
I&O
09/18/23 09/19/23 09/20/23
06:59 06:59 06:59
Intake Total 960 / 960 960 / 960
Balance 960 / 960 960 / 960
Review of Systems
-
History Source: Patient
All other systems: Reviewed and negative
[2023-09-19 13:10] LABS: GGTP 63 U/L (15-73)
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
[2023-09-19 15:00] VITALS: BP 109/74
--- NOTE | 2023-09-19 16:35 | PTOTSP ---
Patient admitted due to right ankle infection, planned for I&D tomorrow. Patient in bed, denies issues with mobility other than related to his ankle pain and is still ambulatory with a SPC. Patient denies concerns regarding his mobility and is aware
our services are available if changes in function or weightbearing status occur while hospitalized. PT will sign off at this time. Please reconsult if needs arise after surgery.
--- NOTE | 2023-09-19 16:41 | W.PN.UPDATE ---
Update Note
Progress Note Update
Patient seen in consultation for right ankle abscess
� N.p.o. at midnight for procedure on 09/20/23
� Continue antibiotics, Appreciate ID Recs
� Nonweightbearing right lower extremity toe-touch for transfers
[2023-09-19] MEDS: LOVENOX 40 MG SC (18:05)
[2023-09-19 19:05] VITALS: BP 135/81
[2023-09-19 20:35] LABS: Hepatitis C Antibody Reactive (Negative)
[2023-09-19 21:31] LABS: Vancomycin Peak 24.3 ug/ml (18-26)
[2023-09-19 23:46] VITALS: BP 102/53
[2023-09-20] VITALS (13 sets, daily range): BP systolic 113–165; BP diastolic 61–119
[2023-09-20 07:01] LABS: Mean Corp Hgb Conc. 34.8 g/dL (33.0-37.0); Mean Corpuscular Hgb 31.3 pg (27.0-31.0); Mean Platelet Volume 9.1 fL (7.4-10.4); Platelet Count 522 10^3/uL (130-400); Red Blood Cell Count 5.11 10^6/uL (4.70-6.10); White Blood Cell Count 8.7 10^3/uL (4.8-10.8)
[2023-09-20 07:10] LABS: Vancomycin Trough 12.5 ug/ml (5-20)
[2023-09-20] MEDS: VANCOCIN 300 ML IV ×2 (07:24→17:10)
[2023-09-20] MEDS: VANCOCIN 300 MG IV ×2 (07:24→17:10)
--- NOTE | 2023-09-20 08:23 | W.PN.ID1 ---
Date of Service
Date of Service: September 20, 2023
Today's Communication
Continue abx.
Assessment / Plan
Right lateral ankle cellulitis
Right lateral ankle collection; suspected abscess
Possible right lateral malleolus osteomyelitis
Elevated ESR
Elevated CRP
Recommendations:
Continue vancomycin for now.
Patient for tentative I&D of the area later today. Please send cultures.
Monitor white count and temperature curve.
Further recommendations as additional data is returned.
����������������������������������������������������������
Chief Complaint
-: Cellulitis and Other (Right ankle collection / suspected abscess.)
Subjective / Review of Systems
Review of Systems: No Fever and No Chills
Vital Signs / Physical Exam
Vital Signs
Vital Signs
Temp Pulse Resp BP Pulse Ox
98.2 F 69 16 145/84 96
09/20/23 07:25 09/20/23 07:25 09/20/23 07:25 09/20/23 07:25 09/20/23 07:25
Physical Exam
Constitutional: No Acute Distress, Comfortable and Non-toxic
Eyes: Sclera Anicteric
Cardiovascular: S1/S2; Negative S3/S4
Pulmonary: Non Labored
Extremities: Edema (1+) and Other (right lateral malleolus area with erythema, swelling and fluctuant area)
Neurological: Awake and Alert
Psychological: Calm
Objective Data
Lab Data
Lab Results
09/20/23 06:46
09/19/23 09:20
ESR 70 mm/hour (0-20) H 09/17/23 06:59
PT 15.1 Sec (11.4-14.6) H 09/17/23 06:59
INR 1.20 09/17/23 06:59
APTT 32.5 Sec (23.4-35.0) 08/03/24 06:59
Estimated Creat Clear > 125 ml/min 09/19/23 09:20
Total Bilirubin 0.6 mg/dl (0.2-1.3) 09/19/23 09:20
GGT 63 U/L (15-73) 09/19/23 09:20
AST 36 U/L (17-59) 09/19/23 09:20
ALT 53 U/L (0-50) H 09/19/23 09:20
Alkaline Phosphatase 92 U/L (38-126) 09/19/23 09:20
C-Reactive Protein 40.00 mg/L (0.0-10.00) H 09/17/23 06:59
Most recent labs reviewed.
Micro Results:
09/16/23 00:00 MRSA Screen - Final
Nose No Methicillin Resistant Staphylococcus aureus isolated.
Imaging:
09/18/2023 MRI, right lower extremity: There is extensive edema along the lateral soft tissues with a 1.6 x 0.6 x 1.4 cm peripherally enhancing abscess within the soft tissues which extends to the lateral malleolus. There is osteomyelitis involving
the lateral malleolus which appears to extend into the lateral aspect of the distal fibular shaft. There is edema and enhancement along the peroneus brevis and longus tendons consistent with tenosynovitis. This is additional enhancement edema within
the inferior aspect of the peroneus brevis muscle consistent with myositis.
[2023-09-20] MEDS: VITAMIN B-12 1000 MCG PO (09:28)
[2023-09-20] MEDS: VITAMIN C 500 MG PO (09:28)
[2023-09-20] MEDS: THERAGRAN 1 TABLET PO (09:28)
[2023-09-20] MEDS: VITAMIN D3 (cholecalciferol) 25 MCG PO (09:28)
--- NOTE | 2023-09-20 09:46 | PHA.VAN.FU ---
Addendum entered and electronically signed by Malaika Mckeon RPH 09/20/23 10:09:
PK consult performed in conjunction with manager of pharmacy. Agree with assessment and plan below.
Original Note:
Vancomycin Assessment / Plan
- Assessment
Renal Function: No New Labs Today
WBC's are: WNL
In the past 24 hrs, patient has been: Afebrile
- Assessment - Therapeutic Drug Monitoring
Extrapolated Cmax (mcg/mL): 26.9
Peak level was drawn: Appropriately (drawn ~1.5 hrs after end of prior infusion)
Extrapolated Cmin (mcg/mL): 13.1
Trough Drawn: Appropriately
Levels were drawn: At steady state (drawn after 5th maintenance dose)
Calculated AUC (mcg*h/mL): 463
Calculated ke: 0.0684
Calculated half life (H): 10.1
Calculated Vd (L): 94.65; 0.8L/kg
Calculated Vanc CL (ml/min): 107.93
- Dosing Plan
Continue: vanc 1500mg q12h
- Monitoring Plan
Level(s) appropriate: Recheck trough at minimum of weekly intervals, Repeat sooner for changes in renal function or clinical status
Next Level Due (Date): ~09/27/23
- Follow Up
Pharmacy will continue to follow.
Vancomycin Follow UP
- -
Patient Age: 63
Patient Sex: Male
Vancomycin Day #: 4
Indication: Bone And Joint
Requesting Provider: Dr. Brianda Cooper / Amanda
Pertinent Antimicrobial Allergies:
No antibiotic allergies
Height / Weight:
Height 6 ft 2 in
Actual Weight 118.025 kg
IBW in k.2
Adjusted BW in k.5
Pertinent Past Medical History: BMI ~33
- Vital Signs / Lab Results
Temp Pulse Resp BP Pulse Ox
98.2 F 69 16 145/84 96
09/20/23 07:25 09/20/23 07:25 09/20/23 07:25 09/20/23 07:25 09/20/23 07:25
Lab Results - Hematology
09/18/23 09/19/23 09/20/23
13:21 09:20 06:46
WBC 7.7 7.5 8.7
Lab Results - Chemistry
09/18/23 09/19/23
13:21 09:20
BUN 18 17
Creatinine 0.8 0.8
Estimated Creat Clear > 125 > 125
Albumin 4.3 4.0
Microbiology Results
09/16/23 00:00 MRSA Screen - Final
Nose No Methicillin Resistant Staphylococcus aureus isolated.
Therapeutic Drug Monitoring
Vancomycin Peak 24.3 ug/ml (18-26) 09/19/23 21:03
Vancomycin Trough 12.5 ug/ml (5-20) 09/20/23 06:46
--- NOTE | 2023-09-20 12:13 | W.PN.UPDATE ---
Update Note
Progress Note Update
Late entry
Pt seen this AM; consent obtained for OR today for RLE D&I with bone bx, placed into chart.
[2023-09-20] MEDS: DILAUDID 0.5 MG IV ×2 (13:41→14:05)
--- NOTE | 2023-09-20 13:47 | W.PN.HOSP.TC ---
Today's Communication/Plan
-
Resume diet
PT/OT
Continue antibiotics
Assessment / Plan
Assessment / Plan
Gen-awake, not fully alert, NAD, obese
HEENT-NC, AT, anicteric, clear oral mm
Neck-supple
CV-reg, no M, +S1/S2
Lungs-clear B/L
Abd-soft, NT, ND
Ext-no edema
Musculoskeletal-no cyanosis, clubbing, right ankle Mike wrap
Skin-warm and dry
Neuro-grossly non-focal
Psych-calm, cooperative
Right Ankle abscess/acute osteomyelitis - MRI noted. 1.6 x 0.6 x 1.4 cm abscess along the lateral malleolus of the right ankle. Osteomyelitis involving the lateral malleolus which appears to extend into the lateral aspect of the distal fibular
shaft. Tenosynovitis and myositis noted. Has had significant pain with ambulation for the past 2 weeks, has been using a cane. Baseline is independent.
Failed outpatient therapy with Keflex for 1 week.
Underwent successful incision and drainage of abscess 09/19 in the OR by podiatry along with fibular bone debridement with biopsy. Await culture results, bone biopsy results. Continue antibiotics per ID.
Tobacco dependence - Patient was counseled on cessation. Declines nicotine patch at this time.
Impaired fasting glucose -hemoglobin A1c 6.0%. Weight loss encouraged.
Transaminitis, Mild - Remote ETOH abuse history reported. Isolated mild ALT elevation. GGT is normal, and therefore ALT elevation is likely not hepatic in origin.
Venous stasis dermatitis - hyperpigmentation of bilateral lower extremities noted. Recommend weight loss.
Obesity due to excess calories
Full code
PT/OT
Anticipated Discharge: 24 - 48 hours
Subjective/Interval History
-
Date of Service: September 20, 2023
Patient seen and examined. In the recovery room currently. Complaining of postop pain.
Objective Data
-
Labs:
Laboratory Results
09/20/23
06:46
WBC 8.7
Hgb 16.0
Hct 46.0
Plt Count 522 H
Vital Signs:
Vital Signs
Temp Pulse Resp BP Pulse Ox
97.1 F 54 14 163/98 100
09/20/23 13:30 09/20/23 13:30 09/20/23 13:30 09/20/23 13:30 09/20/23 13:30
I&O
09/19/23 09/20/23 09/21/23
06:59 06:59 06:59
Intake Total 960 / 960 960 / 960
Balance 960 / 960 960 / 960
Review of Systems
-
History Source: Patient
All other systems: Reviewed and negative
--- NOTE | 2023-09-20 13:59 | CM ---
IV/Vanco, anticipate RLE ankle I/D today with bone bx. Discharge Plan of Care: Anticipate home possibly with [facility].
[2023-09-20] MEDS: LOVENOX 40 MG SC (17:07)
[2023-09-20] MEDS: NAPROSYN 500 MG PO (21:47)
[2023-09-21] VITALS (7 sets, daily range): BP systolic 109–141; BP diastolic 59–74; PULSE 78; O2SAT 96
[2023-09-21] MEDS: VANCOCIN 300 MG IV (06:24)
[2023-09-21] MEDS: VANCOCIN 300 ML IV (06:24)
[2023-09-21] MEDS: REFRESH CELLUVISC GEL 1 DROPS BOTH EYES (06:35)
--- NOTE | 2023-09-21 07:51 | PHA.VAN.FU ---
Vancomycin Assessment / Plan
- Assessment
Renal Function: Stable
WBC's are: WNL
In the past 24 hrs, patient has been: Afebrile
- Dosing Plan
Continue: Vanc 1500mg Q12H
- Monitoring Plan
Level(s) appropriate: Recheck trough at minimum of weekly intervals, Repeat sooner for changes in renal function or clinical status
Next Level Due (Date): ~09/26
- Follow Up
Pharmacy will continue to follow.
Vancomycin Follow UP
- -
Patient Age: 63
Patient Sex: Male
Vancomycin Day #: 5
Indication: Bone And Joint
Requesting Provider: Dr. Brianda Cooper / Amanda
Pertinent Antimicrobial Allergies:
NKDA
Height / Weight:
Height 6 ft 2 in
Actual Weight 118.025 kg
IBW in k.2
Adjusted BW in k.5
Pertinent Past Medical History: BMI ~33
- Vital Signs / Lab Results
Temp Pulse Resp BP Pulse Ox
98.3 F 56 18 109/59 100
09/21/23 03:15 09/21/23 03:15 09/21/23 03:15 09/21/23 03:15 09/21/23 03:15
Lab Results - Hematology
09/18/23 09/19/23 09/20/23
13:21 09:20 06:46
WBC 7.7 7.5 8.7
Lab Results - Chemistry
09/18/23 09/19/23
13:21 09:20
BUN 18 17
Creatinine 0.8 0.8
Estimated Creat Clear > 125 > 125
Albumin 4.3 4.0
Microbiology Results
09/20/23 13:30 Gram Stain - Preliminary
Abscess
Therapeutic Drug Monitoring
Vancomycin Peak 24.3 ug/ml (18-26) 09/19/23 21:03
Vancomycin Trough 12.5 ug/ml (5-20) 09/20/23 06:46
--- NOTE | 2023-09-21 07:56 | VATNOTE ---
Vat rounds: Right forearm vanco infiltrate has been resolved. No c/o pain. swelling , redness has been resolved.
[2023-09-21] MEDS: VITAMIN B-12 1000 MCG PO (08:07)
[2023-09-21] MEDS: THERAGRAN 1 TABLET PO (08:07)
[2023-09-21] MEDS: VITAMIN D3 (cholecalciferol) 25 MCG PO (08:07)
[2023-09-21] MEDS: VITAMIN C 500 MG PO (08:07)
--- NOTE | 2023-09-21 08:15 | W.PN.UPDATE ---
Update Note
Progress Note Update
Mr. Ocasio is POD1 following his right lower extremity I&D with bone biopsy performed by Dr. Chew. He is resting comfortably in bed this morning. He reports his ankle has felt much better overnight. He denies any pain at present. He is
otherwise feeling well.
Directed exam of the right lower extremity reveals surgical dressing clean, dry and intact. Hue of erythema about the anterior exposed almaguer. Mild heat to touch. No tenderness to palpation. Patient able to wiggle toes. Sensation intact to light touch
above and below splint. Capillary refill <2 seconds.
Specimen take in OR reveals gram stain with rare WBC, no organisms.
--Wound care. Dressing changes 3x/week.
--Continue antibiotics per ID. Currently vancomycin.
--TTWB to RLE. Patient would benefit from PT/OT while admitted.
--Pain control per primary. Elevation for edema control.
--Follow up outpatient 10-14 days.
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
--- NOTE | 2023-09-21 11:24 | W.PN.HOSP.TC ---
Today's Communication/Plan
-
Continue current care
Assessment / Plan
Assessment / Plan
Gen-awake, not fully alert, NAD, obese
HEENT-NC, AT, anicteric, clear oral mm
Neck-supple
CV-reg, no M, +S1/S2
Lungs-clear B/L
Abd-soft, NT, ND
Ext-no edema
Musculoskeletal-no cyanosis, clubbing, right ankle Mike wrap
Skin-warm and dry
Neuro-grossly non-focal
Psych-calm, cooperative
Right Ankle abscess/acute osteomyelitis - MRI noted. 1.6 x 0.6 x 1.4 cm abscess along the lateral malleolus of the right ankle. Osteomyelitis involving the lateral malleolus which appears to extend into the lateral aspect of the distal fibular
shaft. Tenosynovitis and myositis noted. Has had significant pain with ambulation for the past 2 weeks, has been using a cane. Baseline is independent.
Failed outpatient therapy with Keflex for 1 week.
Underwent successful incision and drainage of abscess 09/19 in the OR by podiatry along with fibular bone debridement with biopsy. Await culture results, bone biopsy results. Continue antibiotics per ID. Wound culture noted to be gram-negative
bacilli. Anticipate prolonged course of IV antibiotics. Discussed with Dr. Patel.
Tobacco dependence - Patient was counseled on cessation. Declines nicotine patch at this time.
Impaired fasting glucose -hemoglobin A1c 6.0%. Weight loss encouraged.
Transaminitis, Mild - Remote ETOH abuse history reported. Isolated mild ALT elevation. GGT is normal, and therefore ALT elevation is likely not hepatic in origin.
Venous stasis dermatitis - hyperpigmentation of bilateral lower extremities noted. Recommend weight loss.
Obesity due to excess calories
Full code
Dispo -anticipate discharge home on IV antibiotics on September 22. Case management aware.
Anticipated Discharge: > 48 hours
Subjective/Interval History
-
Date of Service: September 21, 2023
Patient seen and examined. Ankle feels much better today.
Objective Data
-
Vital Signs:
Vital Signs
Temp Pulse Resp BP Pulse Ox
97.8 F 55 16 139/69 95
09/21/23 07:25 09/21/23 07:25 09/21/23 07:25 09/21/23 07:25 09/21/23 07:25
I&O
09/20/23 09/21/23 09/22/23
06:59 06:59 06:59
Intake Total 960 / 960 1020 / 1020
Balance 960 / 960 1020 / 1020
Review of Systems
-
History Source: Patient
All other systems: Reviewed and negative
[2023-09-21] MEDS: MAXIPIME 2000 MG IV ×2 (11:42→23:13)
[2023-09-21] MEDS: MIRALAX 17 GRAMS PO (11:42)
[2023-09-21] MEDS: STERILE WATER FOR INJECTION 10 ML IV ×2 (11:42→23:13)
--- NOTE | 2023-09-21 12:42 | PN.CDI ---
CDI
- -
CDI:
Physician Documentation Request
Admit Date: 09/16/23 21:14
Dear Doctor Jeevan,
Please review the following and provide your response in the progress notes.
Clinical Indicators:
Pt admitted with acute osteomyelitis of right ankle/abscess
Documented per Operative report, ' ..A longitudinal incision was made over the distal fibula which wascarried down to the level of the abscess. Cultures were obtained and all nonviable tissue was debrided and multiloculated abscess...Attention was
drawn to the distal fibula which was noted to be soft and irregular. It was debrided with a high-speed bur downto healthy bleeding bone and a biopsy was taken for pathologic specimen. '
Could you provide, in the progress notes further clarification regarding the debridement.
Please specify the type of debridement performed:
1. Excisional Debridement - defined as removal by excision of devitalized tissue, necrosis or slough
2. Non-excisional debridement - defined as removal of devitalized tissue, necrosis or slough by such methods as irrigation, brushing, scrubbing or washing.
If the debridement was excisional, please also include:
1. Type of instrument used (#11 blade, #15 blade etc.)
2. What was excised (necrotic tissue, gangrenous tissue, slough etc.)
For excisional or non-excisional, please also include:
1. Depth of debridement (skin, subcutaneous tissue, fascia, muscle, bone etc)
2. Size and appearance of the wound (L, W, D, color of wound, drainage)
Use of terms such as suspected, likely, concern for, or probable (associated with a specific diagnosis that is being evaluated, monitored, or treated as if it exists) are acceptable and can be coded in the inpatient setting, when documented at the
time of discharge.
Thank you,
Amy Rose RN
CDI Specialist
[facility]
Please use your independent medical judgment in providing your response.
--- NOTE | 2023-09-21 14:22 | CM ---
Patient to be discharged to home on IV/AB. Awaiting more cultures. Discharge drug not yet determined. Needs Picc. Preliminary documentation faxed to Rivka at [facility]. Confirmed with phone call. Rivka will follow.
[2023-09-21] MEDS: LOVENOX 40 MG SC (17:40)
--- NOTE | 2023-09-21 18:13 | W.PN.UPDATE ---
Update Note
Progress Note Update
Operative addendum,
Excisional debridement to the level of bone
[2023-09-21] MEDS: NAPROSYN 500 MG PO (21:23)
[2023-09-21] MEDS: COLACE 100 MG PO (21:23)
[2023-09-22 07:10] VITALS: BP 150/86
--- NOTE | 2023-09-22 07:34 | W.PN.ORTHO ---
Today's Communication / Plan
-
Toe-touch weightbearing right lower extremity
Ice with elevation to control swelling and pain
Antibiotics per ID
Dressing change 3 times a week
Follow-up with orthopedics 10 to 14 days postop
Assessment
.
Distal Motor Intact: Yes
Dressing:
Clean, dry and intact.
Plan
.
Surgery / Date: R ankle I & D 09/18 [facility]
DVT Prophylaxis: Aspirin
Activity:
Out of bed.
PT/OT
Discharge Plan: Home
Subjective
.
.:
Patient resting comfortably.
Vital Signs and Labs
.
Vital Signs and Labs:
Lab Results
09/20/23 06:46
09/19/23 09:20
Temp Pulse Resp BP Pulse Ox
98.0 F 63 16 129/67 95
09/21/23 23:50 09/21/23 23:50 09/21/23 23:50 09/21/23 23:50 09/21/23 23:50
PT 15.1 Sec (11.4-14.6) H 09/17/23 06:59
INR 1.20 09/17/23 06:59
Wound culture showed gram-negative bacilli
Bone biopsy showed chronic osteomyelitis
[2023-09-22] MEDS: MIRALAX 17 GRAMS PO (08:49)
[2023-09-22] MEDS: COLACE PO (08:49)
[2023-09-22] MEDS: THERAGRAN 1 TABLET PO (08:50)
[2023-09-22] MEDS: VITAMIN C 500 MG PO (08:50)
[2023-09-22] MEDS: VITAMIN D3 (cholecalciferol) 25 MCG PO (08:50)
[2023-09-22] MEDS: VITAMIN B-12 1000 MCG PO (08:50)
--- NOTE | 2023-09-22 11:26 | W.PN.ID1 ---
Date of Service
Date of Service: September 22, 2023
Today's Communication
Continue antibiotics.
Assessment / Plan
Right lateral ankle cellulitis
Right lateral ankle abscess
- s/p I&D 09/20/23
Right lateral malleolus osteomyelitis
Elevated ESR
Elevated CRP
Recommendations:
Cultures with Pseudomonas aeruginosa (pansensitive)
Pathology reviewed and reveals evidence of osteomyelitis.
Continue with a 6-week course of cefepime. Home infusion sheet will be placed on paper chart.
Place PICC line.
Will follow outpatient labs, and follow-up in office in approximately 2 weeks.
����������������������������������������������������������
Chief Complaint
-: Cellulitis and Other (Right ankle collection / abscess. Osteomyelitis.)
Subjective / Review of Systems
Review of Systems: No Fever and No Chills
Vital Signs / Physical Exam
Vital Signs
Vital Signs
Temp Pulse Resp BP Pulse Ox
97.6 F 63 16 150/86 97
09/22/23 07:10 09/22/23 07:10 09/22/23 07:10 09/22/23 07:10 09/22/23 07:10
Physical Exam
Constitutional: No Acute Distress, Comfortable and Non-toxic
Eyes: No Conjunctival Hemorrhage and Sclera Anicteric
Pulmonary: Non Labored
Wound: Other (Right ankle dressed in Mike wrap. No erythema extending up leg.)
Neurological: Awake and Alert
Psychological: Calm
Objective Data
Lab Data
Lab Results
09/20/23 06:46
09/19/23 09:20
ESR 70 mm/hour (0-20) H 09/17/23 06:59
PT 15.1 Sec (11.4-14.6) H 09/17/23 06:59
INR 1.20 09/17/23 06:59
APTT 32.5 Sec (23.4-35.0) 09/17/23 06:59
Estimated Creat Clear > 125 ml/min 09/19/23 09:20
Total Bilirubin 0.6 mg/dl (0.2-1.3) 09/19/23 09:20
GGT 63 U/L (15-73) 09/19/23 09:20
AST 36 U/L (17-59) 09/19/23 09:20
ALT 53 U/L (0-50) H 09/19/23 09:20
Alkaline Phosphatase 92 U/L (38-126) 09/19/23 09:20
C-Reactive Protein 40.00 mg/L (0.0-10.00) H 09/17/23 06:59
Most recent labs reviewed.
Micro Results:
09/20/23 13:30 Wound Culture - Preliminary
Abscess Pseudomonas aeruginosa
Gram Stain - Final
09/20/23 13:30 Anaerobic Culture - Preliminary
Abscess Culture pending. Anaerobic cultures are examined after 3
days incubation. Additional information to follow.
09/16/23 00:00 MRSA Screen - Final
Nose No Methicillin Resistant Staphylococcus aureus isolated.
Wound/abscess/other Cult Preliminary 09/22/23-1040
Few Pseudomonas aeruginosa
Organism 1 Pseudomonas aeruginosa
1. Pseudomonas aeruginosa
M.I.C. RX
--------- ---
Aztreonam <=4 S
Cefepime 8 S
Ceftazidime 4 S
Ciprofloxacin <=0.25 S
Meropenem <=1 S
Piperacillin/Tazobactam <=8 S
Tobramycin <=2 S
Imaging:
09/18/2023 MRI, right lower extremity: There is extensive edema along the lateral soft tissues with a 1.6 x 0.6 x 1.4 cm peripherally enhancing abscess within the soft tissues which extends to the lateral malleolus. There is osteomyelitis involving
the lateral malleolus which appears to extend into the lateral aspect of the distal fibular shaft. There is edema and enhancement along the peroneus brevis and longus tendons consistent with tenosynovitis. This is additional enhancement edema within
the inferior aspect of the peroneus brevis muscle consistent with myositis.
Care Review
Plan reviewed with: Physician (Hospitalist)
--- NOTE | 2023-09-22 11:57 | W.PN.HOSP.TC ---
Today's Communication/Plan
-
PICC line
Discharge planning
Assessment / Plan
Assessment / Plan
Gen-awake, not fully alert, NAD, obese
HEENT-NC, AT, anicteric, clear oral mm
Neck-supple
CV-reg, no M, +S1/S2
Lungs-clear B/L
Abd-soft, NT, ND
Ext-no edema
Musculoskeletal-no cyanosis, clubbing, right ankle Mike wrap
Skin-warm and dry
Neuro-grossly non-focal
Psych-calm, cooperative
Right Ankle abscess/acute osteomyelitis - MRI noted. 1.6 x 0.6 x 1.4 cm abscess along the lateral malleolus of the right ankle. Osteomyelitis involving the lateral malleolus which appears to extend into the lateral aspect of the distal fibular
shaft. Tenosynovitis and myositis noted. Has had significant pain with ambulation for the past 2 weeks, has been using a cane. Baseline is independent. Patient admits to walking in large puddles prior to onset of infection.
Failed outpatient therapy with Keflex for 1 week.
Underwent successful incision and drainage of abscess 09/19 in the OR by podiatry along with fibular bone debridement with biopsy.
Wound culture shows pansensitive Pseudomonas aeruginosa. Path report positive for osteomyelitis. Anticipate discharge on IV antibiotics (Cefepime) per infectious disease, 6-week course. PICC line to be placed. Case management informed. Visiting
nursing to be arranged.
Outpatient follow-up with PCP, ID, orthopedics.
Tobacco dependence - Patient was counseled on cessation. Declines nicotine patch at this time.
Impaired fasting glucose -hemoglobin A1c 6.0%. Weight loss encouraged.
Transaminitis, Mild - Remote ETOH abuse history reported. Isolated mild ALT elevation. GGT is normal, and therefore ALT elevation is likely not hepatic in origin.
Venous stasis dermatitis - hyperpigmentation of bilateral lower extremities noted. Recommend weight loss.
Obesity due to excess calories
Full code
Dispo -anticipate discharge home on IV antibiotics once arrangements have been made. Case management aware. Updated at the bedside.
Anticipated Discharge: Within 24 hours
Subjective/Interval History
-
Date of Service: September 22, 2023
Patient seen and examined. Mild ankle pain.
Objective Data
-
Vital Signs:
Vital Signs
Temp Pulse Resp BP Pulse Ox
97.6 F 63 16 150/86 97
09/22/23 07:10 09/22/23 07:10 09/22/23 07:10 09/22/23 07:10 09/22/23 07:10
I&O
09/21/23 09/22/23 09/23/23
06:59 06:59 06:59
Intake Total 1020 / 1020 0 / 1920
Balance 1020 / 1020 1919 / 1919
Review of Systems
-
History Source: Patient
All other systems: Reviewed and negative
--- NOTE | 2023-09-22 12:04 | CM ---
Addendum entered by Mitra Mena 09/22/23 12:26:
[facility] referral accepted
Adali Nunez Office

Addendum entered by Mitra Mena 09/22/23 12:21:
Referral to [facility] sent via [facility]
Original Note:
Plan: discharge to home tomorrow with [facility] and [facility]
Faxed IV orders to Rivka @ [facility]
--- NOTE | 2023-09-22 12:05 | W.DS.TRANS ---
DC Summary - Client Success Manager
-
Discharge Instructions:
Discharge Diagnosis/Procedures Right ankle abscess, osteomyelitis
Diet Regular
Activity As tolerated
Driving Restrictions As prior to admission
Bathing Restrictions None
Other Services VN
Instructions:
Stand-Alone Forms:
Changes to Home Medications: No
Discharge Medications:
DC Medications w/original date entered in [employer]
ascorbic acid (vitamin C) 500 mg tablet (Vitamin C) 500 mg PO DAILY Supplement 09/16/23
carboxymethylcellulose sodium 0.5 % eye drops (Refresh Tears) 1 drp BOTH EYES QIDPRN PRN dry eyes 09/16/23
cholecalciferol (vitamin D3) 25 mcg (1,000 unit) tablet (Vitamin D3) 25 mcg PO DAILY Supplement 09/16/23
cyanocobalamin (vitamin B-12) 1,000 mcg tablet 1,000 mcg PO DAILY Supplement 09/16/23
naproxen 500 mg tablet 500 mg PO BID Pain 09/16/23
therapeutic multivitamin 1 tab PO DAILY Supplement 09/16/23
cefepime 2 gram solution for injection 2,000 mg IV Q12H #0 ea 09/22/23
docusate sodium 100 mg capsule 100 mg PO BID #0 caps 09/22/23
polyethylene glycol 3350 17 gram oral powder packet (HealthyLax) 17 g PO DAILY #0 ea 09/22/23
Home Medication Changes
Pending Results: No
[2023-09-22] MEDS: STERILE WATER FOR INJECTION 10 ML IV ×2 (12:22→23:54)
[2023-09-22] MEDS: MAXIPIME 2000 MG IV ×2 (12:22→23:54)
[2023-09-22 15:25] VITALS: BP 136/72
[2023-09-22] MEDS: LOVENOX 40 MG SC (17:11)
[2023-09-22] MEDS: COLACE 100 MG PO (20:26)
[2023-09-22 23:48] VITALS: BP 111/66
[2023-09-23 07:20] VITALS: BP 122/75
--- NOTE | 2023-09-23 08:16 | W.PN.HOSP.TC ---
Today's Communication/Plan
-
Discharge
Assessment / Plan
Assessment / Plan
Gen-awake, not fully alert, NAD, obese
HEENT-NC, AT, anicteric, clear oral mm
Neck-supple
CV-reg, no M, +S1/S2
Lungs-clear B/L
Abd-soft, NT, ND
Ext-no edema
Musculoskeletal-no cyanosis, clubbing, right ankle Mike wrap
Skin-warm and dry
Neuro-grossly non-focal
Psych-calm, cooperative
Right Ankle abscess/acute osteomyelitis - MRI noted. 1.6 x 0.6 x 1.4 cm abscess along the lateral malleolus of the right ankle. Osteomyelitis involving the lateral malleolus which appears to extend into the lateral aspect of the distal fibular
shaft. Tenosynovitis and myositis noted. Has had significant pain with ambulation for the past 2 weeks, has been using a cane. Baseline is independent. Patient admits to walking in large puddles prior to onset of infection.
Failed outpatient therapy with Keflex for 1 week.
Underwent successful incision and drainage of abscess 09/19 in the OR by podiatry along with fibular bone debridement with biopsy.
Wound culture shows pansensitive Pseudomonas aeruginosa. Path report positive for osteomyelitis. Anticipate discharge on IV antibiotics (Cefepime) per infectious disease, 6-week course. PICC line to be placed. Case management informed. Visiting
nursing to be arranged.
Outpatient follow-up with PCP, ID, orthopedics.
Tobacco dependence - Patient was counseled on cessation. Declines nicotine patch at this time.
Impaired fasting glucose -hemoglobin A1c 6.0%. Weight loss encouraged.
Transaminitis, Mild - Remote ETOH abuse history reported. Isolated mild ALT elevation. GGT is normal, and therefore ALT elevation is likely not hepatic in origin.
Venous stasis dermatitis - hyperpigmentation of bilateral lower extremities noted. Recommend weight loss.
Obesity due to excess calories
Full code
Dispo -anticipate discharge home on IV antibiotics once arrangements have been made, hopefully today. Updated at the bedside. Orthopedics to recommend surgical shoe versus boot. Discussed with orthopedics PA.
33-minute spent in discharge process.
Anticipated Discharge: Today
Subjective/Interval History
-
Date of Service: September 23, 2023
Patient seen and examined. Pain is controlled. Eager to go home.
Objective Data
-
Vital Signs:
Vital Signs
Temp Pulse Resp BP Pulse Ox
98.2 F 53 16 111/66 96
09/22/23 23:48 09/22/23 23:48 09/22/23 23:48 09/22/23 23:48 09/22/23 23:48
I&O
09/22/23 09/23/23 09/24/23
06:59 06:59 06:59
Intake Total 1919 1140 / 1140
Balance 1919 1140 / 1140
Review of Systems
-
History Source: Patient
All other systems: Reviewed and negative
[2023-09-23] MEDS: THERAGRAN 1 TABLET PO (08:32)
[2023-09-23] MEDS: VITAMIN B-12 1000 MCG PO (08:32)
[2023-09-23] MEDS: VITAMIN D3 (cholecalciferol) 25 MCG PO (08:32)
[2023-09-23] MEDS: VITAMIN C 500 MG PO (08:32)
[2023-09-23] MEDS: MIRALAX PO (08:33)
[2023-09-23] MEDS: COLACE PO (08:33)
--- NOTE | 2023-09-23 10:06 | W.PN.UPDATE ---
Update Note
Progress Note Update
Dressing was changed this morning showing Prolene sutures about the lateral ankle. Loosely approximated sutures intentionally placed. No significant discharge. Nonadherent Adaptic was applied followed by an ABD pad and overlying Mike wrap. Per
Dr. Chew/podiatry team for wound care and discharge instructions
[2023-09-23] MEDS: MAXIPIME 2000 MG IV (11:15)
[2023-09-23] MEDS: STERILE WATER FOR INJECTION 10 ML IV (11:16)
[2023-09-23 14:12] VITALS: BP 149/99
--- NOTE | 2023-09-23 14:30 | CM ---
Patient has been medically cleared for discharge to home with [facility] and [facility]. [facility] educated patient on infusion of medications on this date. Patient expressed that he feels comfortable with
administration. will transport home.
[facility] FAX # [phone]
[facility] FAX # [phone]
== END 2023-09-23 14:39 | disposition home health service (06) | DRG 478 ==
LOC: 2 NORTH 21:14
PROVIDERS: Emergency Medicine; Internal Medicine; ADMITTING PHYSICIAN Internal Medicine; ATTENDING PHYSICIAN Hospitalist; CONSULT PHYSICIAN Podiatrist Foot & Ankle Surgery; CONSULT PHYSICIAN Student in an Organized Health Care Education/Training Program; EMERGENCY PHYSICIAN Student in an Organized Health Care Education/Training Program; FAMILY PHYSICIAN Internal Medicine; OTHER PHYSICIAN Internal Medicine Infectious Disease
PROC: 0S9F0ZX Drainage of Right Ankle Joint, Open Approach, Diagnostic (ICD-10-PCS; 2023-09-20)
PROC: 0QBJ0ZX Excision of Right Fibula, Open Approach, Diagnostic (ICD-10-PCS; 2023-09-20)
DX: M86.9 Osteomyelitis, unspecified (principal); L02.415 Cutaneous abscess of right lower limb; L03.115 Cellulitis of right lower limb; M65.071 Abscess of tendon sheath, right ankle and foot
CPT/HCPCS: 88304; 88311; 71045; 73723; 80053; 80202; 82248; 82977; 83036; 85025; 85027; 85610; 85652; 85730; 86140; 86803; 87070; 87075; 87077; 87186; 87205; 96360; 97116; 97162; 97166; 97530; 97535; 99285; 99406; A9575

== ENCOUNTER → 2024-02-17 06:51 | Outpatient (REF) | payer BC, SELFPAY | LOC: RAD 06:51 | PROVIDERS: ATTENDING PHYSICIAN Student in an Organized Health Care Education/Training Program; FAMILY PHYSICIAN Internal Medicine | DX: I73.9 Peripheral vascular disease, unspecified (principal) | CPT/HCPCS: 93922; 93925 ==

== ENCOUNTER → 2024-02-20 07:54 | Outpatient (REF) | payer BC, SELFPAY | LOC: RAD 07:54 | PROVIDERS: ATTENDING PHYSICIAN Student in an Organized Health Care Education/Training Program; FAMILY PHYSICIAN Internal Medicine | DX: I87.2 Venous insufficiency (chronic) (peripheral) (principal) | CPT/HCPCS: 93971 ==

== ENCOUNTER → 2024-06-22 07:31 | Outpatient (REF) | payer BC, SELFPAY | LOC: HWRAD 07:31 | PROVIDERS: ATTENDING PHYSICIAN Internal Medicine Hematology & Oncology; FAMILY PHYSICIAN Internal Medicine | DX: I82.501 Chronic embolism and thrombosis of unspecified deep veins of right lower extremity (principal); D68.59 Other primary thrombophilia | CPT/HCPCS: 93971 ==